=== PATIENT | female | born 2000 | race Hispanic/Latino ===

== ENCOUNTER 2022-02-23 02:30 | Emergency (ER) | payer BC ==
[~2022-02-23] VITALS: Ht 157.5 cm; Wt 81.6 kg
[2022-02-23 06:35] VITALS: BP 126/65
[2022-02-23] MEDS ORDERED: PNV#1CAP17 PO (06:35)
== END 2022-02-23 06:43 | disposition home or self-care (01) ==
LOC: EDH 02:30
DX: O98.511 Other viral diseases complicating pregnancy, first trimester (principal); B34.9 Viral infection, unspecified; O36.80X0 Pregnancy with inconclusive fetal viability, not applicable or unspecified; Z88.5 Allergy status to narcotic agent; Z90.49 Acquired absence of other specified parts of digestive tract; Z3A.01 Less than 8 weeks gestation of pregnancy
CPT/HCPCS: 36415; 84702